=== PATIENT | female | born 1985 | race Caucasian/White ===

== ENCOUNTER → 2020-01-11 07:39 | Outpatient (CLI) | payer OTHER, SELFPAY ==
--- NOTE | 2020-01-11 | DI.US.S_ITS ---
PROCEDURE: US PELVIC COMPLETE INDICATIONS: PELVIC AND PERINEAL PAIN TECHNIQUE: Real-time scanning was performed of the pelvic organs, with image documentation. Additional endovaginal scanning was necessary due to incomplete visualization of the adnexal and endometrial structures by transabdominal scanning. COMPARISON: [facility], [place], PELVIC COMPLETE, 05/28/2017, 15:39. [facility], [place], PELVIC COMPLETE, 08/28/2017, 12:31. FINDINGS: Transabdominal scanning: Limited scanning through the kidneys shows no hydronephrosis. No pathologic free abdominal or pelvic fluid. Endovaginal scanning: Uterus: Surgically absent. Vaginal cuff appears unremarkable. Ovaries: Flow is present within both ovaries. Right ovary measures 3.3 x 5 x 3.9 cm. There is a minimally complex cyst with small septations in the right ovary measuring 3.4 x 2.8 x 3.7 cm. No internal vascularity. A similar size cyst was reported on a remote pelvic ultrasound 08/28/2017 measuring 3.8 x 3.6 x 3.3 cm. Left ovary measures 1.9 x 3.2 x 1.6 cm. The there is a homogeneous echogenic focus in the left ovary measuring a 1 x 0.7 x 0.7 cm. No internal vascularity. No posterior acoustic enhancement. IMPRESSION: 1. Left ovary demonstrates a homogeneous echogenic mass or cyst measuring 1 cm without internal vascularity. This could represent a small endometrioma but these are typically more hypoechoic. Small dermoid is also a diagnostic consideration. Pelvic MRI may be helpful for further characterization. Followup ultrasound in 6-12 weeks would also be helpful. 2. Right ovary demonstrates a minimally complex cyst with thin septations and no internal vascularity and measures up to 3.7 cm. It is uncertain as this is the same cyst which was seen in 2017. This could be a source of pelvic pain. Followup pelvic ultrasound in 6-12 weeks may be helpful. 3. Vaginal cuff is unremarkable. Dictated by: Lenin Schmidt M.D. on 01/11/2020 at 9:19 Approved by: Lenin Schmidt M.D. on 01/11/2020 at 9:36
== END ==
PROVIDERS: Family Provider Nurse Practitioner Family; PCP Nurse Practitioner Family; Referring Provider Internal Medicine; Visit Provider Internal Medicine
DX: R10.2 Pelvic and perineal pain (principal); Z87.42 Personal history of other diseases of the female genital tract
CPT/HCPCS: 76830; 76856

== ENCOUNTER → 2020-04-19 07:55 | Outpatient (CLI) | payer OTHER, SELFPAY ==
--- NOTE | 2020-04-19 | DI.US.S_ITS ---
PROCEDURE: US PELVIC COMPLETE INDICATIONS: FOLLOW-UP OVARIAN CYST REMOVAL TECHNIQUE: Real-time scanning was performed of the pelvic organs, with image documentation. Additional endovaginal scanning was necessary due to incomplete visualization of the adnexal and endometrial structures by transabdominal scanning. COMPARISON: [facility], , PELVIC COMPLETE, 01/11/2020, 8:13. [facility], , PELVIC COMPLETE, 08/28/2017, 12:31. FINDINGS: Transabdominal scanning: Limited scanning through the kidneys shows no hydronephrosis. No pathologic free abdominal or pelvic fluid. Endovaginal scanning: Uterus: Surgically absent. Ovaries: The right ovary measures 2.8 x 1.7 x 2.3 cm and the left measures 2.3 x 2.4 x 2.1 cm. The left ovary contains a simple cyst measuring 1.7 x 1.5 x 1.3 cm. IMPRESSION: Prior hysterectomy. There is a small simple cyst at the left ovary measuring up to 1.7 cm in maximal diameter. No followup recommended. Dictated by: Guy Mistry M.D. on 04/19/2020 at 9:17 Approved by: Guy Mistry M.D. on 04/19/2020 at 9:19
== END ==
PROVIDERS: Family Provider Nurse Practitioner Family; Referring Provider Obstetrics & Gynecology; Visit Provider Obstetrics & Gynecology
DX: R10.2 Pelvic and perineal pain (principal); N83.292 Other ovarian cyst, left side; Z90.710 Acquired absence of both cervix and uterus
CPT/HCPCS: 76830; 76856